=== PATIENT | male | born 1980 | race Caucasian/White ===

== ENCOUNTER → 2016-08-18 | Outpatient (CLI) | payer OTHER ==
[~2016-08-18] MED LIST: IBUP-103 PO; MULT-506 PO; SALI1SPR3
--- NOTE | 2016-08-18 16:08 | DIAGNOSTIC IMAGING REPORT ---
CHEST 2 VIEWS ROUTINE CLINICAL HISTORY: ACUTE SINUSITIS dyspnea COMPARISON STUDY: No previous studies for comparison. FINDINGS: The bones soft tissues and hemidiaphragms are normal. The cardiomediastinal silhouette is normal. The lungs are clear. The pulmonary vasculature is normal. IMPRESSION: Negative chest. Electronically signed by: Vinh Taylor M.D. 08/18/2016 4:07 PM Dictated Date/Time: 08/18/2016 4:07 PM
== END | disposition home or self-care (01) ==
LOC: C.RAD1850 15:52
PROVIDERS: ATTEND Family Medicine
DX: R50.9 Fever, unspecified (principal); J01.90 Acute sinusitis, unspecified

== ENCOUNTER 2016-08-19 10:18 | Emergency (ER) | payer OTHER ==
[~2016-08-19] VITALS: Ht 185.4 cm; Wt 102.3 kg
[~2016-08-19 10:18] MED LIST changes: -IBUP-103 PO; -SALI1SPR3
[2016-08-19 10:30] VITALS: TEMP 36.9; Ht 185.4 cm; Wt 102.3 kg
[2016-08-19] MEDS ORDERED: SALI1SPR3 (11:03)
[2016-08-19] MEDS ORDERED: IBUP-103 PO (11:04)
[2016-08-19] MEDS ORDERED: SODIUM CHLORIDE 0.9% 1000ML 1,000 ML IV STA (11:10)
[2016-08-19] MEDS ORDERED: KETOROLAC TROMETHAMINE 30 MG/ML VIAL IV STA (11:10)
[2016-08-19 11:32] LABS: BASO % 0.4 %; BASO ABS # 0.02 K/uL (0-0.2); COMPLETE YES; EOS % 0.2 %; HEMATOCRIT 43.3 % (42-52); IG% 0.2 %; LYMPH % 22.5 %; MEAN CELL VOLUME 84.9 fL (80-100); MEAN CORPUSCULAR HEMOGLOBIN 29.2 pg (25-34); MEAN CORPUSCULAR HGB CONC 34.4 g/dl (32-36); NEUT % 58.7 %; PLATELET COUNT 198 K/uL (130-400); WHITE BLOOD COUNT 5.33 K/uL (4.8-10.8)
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
[2016-08-19 11:50] LABS: ALT/SGPT 34 U/L (12-78); BLOOD UREA NITROGEN 13 mg/dl (7-18); BUN/CREATININE RATIO 10.5 (10-20); CALCIUM 8.3 mg/dl (8.5-10.1); CARBON DIOXIDE 26 mmol/L (21-32); CHLORIDE 108 mmol/L (98-107); GLUCOSE 89 mg/dl (70-99); POTASSIUM 3.6 mmol/L (3.5-5.1); SODIUM 141 mmol/L (136-145)
[2016-08-19 11:53] LABS: ALKALINE PHOSPHATASE 61 U/L (45-117); AST/SGOT 23 U/L (15-37); CKMB/CK RATIO 0.7 (0-3.0)
--- NOTE | 2016-08-19 12:03 | DIAGNOSTIC IMAGING REPORT ---
TWO VIEW CHEST CLINICAL HISTORY: Fever. Sepsis.. FINDINGS: PA and lateral chest radiographs are compared to study dated 08/18/2016. The cardiomediastinal silhouette is unremarkable. The lungs and pleural spaces are clear. There is no pneumothorax. The bony thorax appears intact. IMPRESSION: No active disease in the chest and no significant change from yesterday. Electronically signed by: Gt Gonzalez M.D. 08/19/2016 12:02 PM Dictated Date/Time: 08/19/2016 12:02 PM
--- NOTE | 2016-08-19 12:03 | DIAGNOSTIC IMAGING REPORT ---
SOFT TISSUE NECK TECHNIQUE: AP and lateral soft tissue neck FINDINGS: Normal prevertebral soft tissues. No distention of the hypopharynx. The epiglottis is normal. IMPRESSION: Normal study. Electronically signed by: Vinh Taylor M.D. 08/19/2016 12:02 PM Dictated Date/Time: 08/19/2016 12:02 PM
[2016-08-19 12:29] LABS: LYME DISEASE AB IGG NEG (NEG); LYME DISEASE AB IGM NEG (NEG)
[2016-08-19 13:07] LABS: URINE APPEARANCE CLEAR (CLEAR); URINE BILIRUBIN NEG (NEG); URINE COLOR DK YELLOW; URINE EPITHELIAL CELL AUTO >30 /lpf (0-5); URINE NITRITE NEG (NEG); URINE SPECIFIC GRAVITY 1.028 (1.000-1.030); UROBILINOGEN NEG (NEG)
[2016-08-19 13:10] LABS: MANUAL MICROSCOPIC REQUIRED? NO; REVIEW REQ? YES
[2016-08-19 14:21] VITALS: BP 131/88; PULSE 80; O2SAT 97
== END 2016-08-19 14:22 | disposition home or self-care (01) ==
LOC: C.EDB 10:20
DX: J02.9 Acute pharyngitis, unspecified (principal); K58.9 Irritable bowel syndrome, unspecified; Z88.8 Allergy status to other drugs, medicaments and biological substances

== ENCOUNTER → 2017-08-09 | Outpatient (CLI) | payer OTHER ==
[~2017-08-09] MED LIST changes: +IBUP-103 PO; +SALI1SPR3
--- NOTE | 2017-08-09 18:10 | DIAGNOSTIC IMAGING REPORT ---
ABDOMEN FOR HERNIA HISTORY: 36 years-old Male PERIUMBILICAL PAIN acute periumbilical abdominal pain COMPARISON: None available TECHNIQUE: Multiple real-time sonographic images of the periumbilical tissues were obtained assessing grayscale appearance and color flow FINDINGS: Within the area of concern within the left periumbilical tissues, there is no abdominal wall hernia, focal mass or other abnormality identified. Normal-appearing subcutaneous tissues are seen. IMPRESSION: No periumbilical hernia identified. The above report was generated using voice recognition software. It may contain grammatical, syntax or spelling errors. Electronically signed by: Jose Carlos Hutton M.D. 08/09/2017 6:09 PM Dictated Date/Time: 08/09/2017 6:08 PM
== END | disposition home or self-care (01) ==
LOC: C.ULTR 17:17
PROVIDERS: ATTEND Student in an Organized Health Care Education/Training Program
DX: R10.33 Periumbilical pain (principal)

== ENCOUNTER 2024-04-21 18:42 | Observation (INO) ==
--- NOTE | 2024-04-21 18:55 | Emergency Department Note ---
Impression & Plan Appendicitis, Abdominal pain, RLQ ED Provider Note NAME: UZMA ROCK AGE: 43 SEX: M : 1980 ARRIVES VIA: Walk-In INFORMANT: Patient, ED PROVIDER(S): Gray Perrin MD CHIEF COMPLAINT: Abdominal pain MEDICAL DECISION MAKING: Patient presents due to concern for abdominal pain. IV was established and blood work was obtained. CT abdomen pelvis performed. Patient declined any pain medication at this time. Blood work shows a normal white count H&H and platelet count. The patient's kidney function is unremarkable with normal LFTs and electrolytes. Urinalysis negative for blood or infection. CT abdomen pelvis does show concern for early mild acute appendicitis.patient was informed of the findings. I did speak the on-call general surgeon Dr. Gill. Mefoxin was ordered and the patient was subsequently taken to the OR for operative treatment. Discussion w/ other healthcare providers: Dr. Newton general surgery Prior /Outside records reviewed: I did review the patient's [facility] report from Dr. Hussein who referred him here for migratory right lower quadrant pain. Differential diagnosis: Appendicitis, testicular torsion, UTI, diverticulitis, obstruction, renal colic, mesenteric adenitis, enteririts, PUD, pancreatitis, biliary pathology, hernia, volvulus, constipation, as well as other pathologies were considered. Diagnostics, as interpreted by me: ECG: None Cardiac monitoring: An order was placed for continuous cardiac monitoring. The monitor shows a rate of 82 with sinus rhythm. Patient was placed on pulse oximetry Medical decision rules: None Imaging studies: I informally interpreted the patient's CT abdomen pelvis does not show evidence of obvious obstruction with formal report to follow. HPI: Patient presents due to concern for abdominal pain. The patient was referred from [facility]. The patient states that this morning he had some associated bilateral lower abdominal pain but now it seems to be more localized to the right lower abdomen. Patient denies any chest pains or shortness of breath no nausea or vomiting. The patient did take some Advil earlier today for headache and thinks that it might of improved his symptoms. The patient had also taken a Gas-X. Patient denies any dysuria or hematuria no hematochezia. Patient denies any prior abdominal surgeries although he did have a mole removed from his abdomen sometime ago. Patient has not had any intra-abdominal procedures performed. PAST MEDICAL HISTORY: No pertinent past medical history PAST SURGICAL HISTORY: No pertinent past surgical history SOCIAL HISTORY: See Below HOME MEDICATIONS: See Below ALLERGIES: See Below VITALS: See Below PHYSICAL EXAMINATION: GENERAL: NAD, non-toxic. EYE EXAM: Normal conjunctiva. PERRL, no anisocoria and EOM's grossly intact w/o pain. OROPHARYNX: Moist mucus membranes, grossly normal dentition. NECK: Trachea midline, no stridor. LUNGS: Clear to auscultation. Normal chest wall mechanics. HEART: NSR, no MRG. ABDOMEN: Abdomen soft, right lower quadrant pain, negative obturators and psoas, no masses, no rebound or guarding. BACK: No CVA TTP. SKIN: No rashes and no bruising. UPPER EXTREMITIES: Upper extremities are grossly normal. LOWER EXTREMITIES: Grossly normal, no edema. NEURO EXAM: A&O x3, cranial nerves II-XII grossly intact, normal speech, moves all 4 extremities. Past Med/Surg History Problem List (Updated 04/21/24 @ 21:55 by Gray Perrin MD) Abdominal pain, RLQ (Acute) Appendicitis (Acute) Irritable bowel syndrome (Chronic) Acute febrile illness (Acute) Pharyngitis (Acute) Social History Smoking Status: Never smoker Preferred Language: Korean Feels Safe at Home: Yes Allergies Allergies Allergy/AdvReac Type Severity Reaction Status Date / Time monosodium glutamate Allergy Mild HANDS SWELL Unverified 08/19/16 11:04 Home Meds Home Medications Medication Instructions Recorded Confirmed multivitamin 1 tab DAILY 04/21/24 04/21/24 Results & Data (ED) Vital Signs Vital Signs - 24 hr 04/21/24 18:53 04/21/24 19:34 04/21/24 19:35 Temperature 36.8 C Temperature Source Temporal Artery Scan Pulse Rate 84 83 Pulse Rate [Apical] 87 Respiratory Rate 19 14 Respiratory Effort / Characteristics Non-Labored Spontaneous Respiratory Depth Normal Respiratory Pattern Regular Blood Pressure 148/90 H Blood Pressure [Right Arm] 141/94 H Blood Pressure Mean 109 Blood Pressure Mean [Right Arm] 109 Blood Pressure Position [Right Arm] Semi-fowlers Pulse Oximetry 97 97 Oxygen Delivery Method Room Air Room Air Sepsis New/Unexplained Change in Mental Status N/A Sepsis Action Taken by Nursing No Action Required 04/21/24 20:58 04/21/24 21:19 Temperature 36.9 C Temperature Source Oral Pulse Rate Pulse Rate [Apical] 81 80 Respiratory Rate 15 22 Respiratory Effort / Characteristics Non-Labored Spontaneous Non-Labored Spontaneous Respiratory Depth Normal Normal Respiratory Pattern Regular Regular Blood Pressure Blood Pressure [Right Arm] 134/93 141/98 H Blood Pressure Mean Blood Pressure Mean [Right Arm] 106 112 Blood Pressure Position [Right Arm] Semi-fowlers Pulse Oximetry 99 99 Oxygen Delivery Method Room Air Room Air Sepsis New/Unexplained Change in Mental Status Sepsis Action Taken by Correction Medications Current Medication List: was personally reviewed by me Laboratory Data Attestation: I reviewed the patient's lab results. 04/21/24 19:05 04/21/24 19:05 Lab Results 04/21/24 04/21/24 Range/Units 19:05 19:10 WBC 7.02 (4.8-10.8) K/ul RBC 5.35 (4.70-6.10) M/uL Hgb 15.7 (14.0-18.0) g/dl Hct 46.9 (42.0-52.0) % MCV 87.7 (80.0-100.0) fL MCH 29.3 (25.0-34.0) pg MCHC 33.5 (32.0-36.0) g/dL RDW Std Deviation 40.3 (36.4-46.3) fL RDW Coeff of Sanya 12.6 (11.5-14.5) % Plt Count 248 (130-400) K/uL MPV 9.0 L (9.4-12.4) fL Immature Gran % (Auto) 0.3 % Neut % (Auto) 66.9 % Lymph % (Auto) 22.6 % [place] % (Auto) 9.0 % Eos % (Auto) 0.9 % Baso % (Auto) 0.3 % Neut # (Auto) 4.70 (1.40-6.50) K/uL Lymph # (Auto) 1.59 (1.20-3.40) K/uL [place] # (Auto) 0.63 H (0.11-0.59) K/uL Eos # (Auto) 0.06 (0.00-0.50) K/uL Baso # (Auto) 0.02 (0.00-0.20) K/uL Immature Gran # (Auto) 0.02 (0.01-0.20) K/uL Sodium 140 (136-145) mmol/L Potassium 3.8 (3.5-5.1) mmol/L Chloride 105 (98-107) mmol/L Carbon Dioxide 29 (21-32) mmol/L Anion Gap 6 (3-11) BUN 15 (6-23) mg/dl Creatinine 1.08 (0.6-1.4) mg/dl Est Cr Clr Drug Dosing 111.2 ml/min eGFR 87.32 BUN/Creatinine Ratio 13.9 (10-20) Glucose 91 (70-99(Fasting)) mg/dl Calcium 9.2 (8.6-10.3) mg/dl Total Bilirubin 0.8 (0.2-1.0) mg/dl AST 18 (13-39) U/L ALT 25 (7-52) U/L Alkaline Phosphatase 52 (34-104) U/L Total Protein 7.4 (6.0-8.3) gm/dl Albumin 4.8 (3.4-5.0) gm/dl Globulin 2.6 (2.5-4.0) gm/dl Albumin/Globulin Ratio 1.8 (0.9-2) Urine Color Yellow Urine Appearance Clear (Clear) Urine pH 5.5 (4.5-7.5) Ur Specific [place] 1.022 (1.000-1.030) Urine Protein Negative (Negative) Urine Glucose (UA) Negative (Negative) Urine Ketones Negative (Negative) Urine Blood Negative (Negative) Urine Nitrite Negative (Negative) Urine Bilirubin Negative (Negative) Urine Urobilinogen Negative (Negative) Ur Leukocyte Esterase Negative (Negative) Administered Medications Discontinued Medications Cefoxitin Sodium (Mefoxin) 2,000 mg in 60 mls @ 100 mls/hr IV NOW STA Stop: 04/21/24 21:14 Last Infusion: 04/21/24 21:27 Dose: Infused Documented By: Admin: 04/21/24 20:54 Dose: 100 mls/hr Documented By: MILIND Ioversol (Optiray 320 100ml) 93 ml IV ONCE ONE Stop: 04/21/24 19:26 Last Admin: 04/21/24 19:25 Dose: 93 ml Documented By: EDK Imaging Data Radiologist's Impression: Abdomen/Pelvis CT 04/21/24 19:06 Exam(s): CT ABDOMEN + PELVIS With Contrast IV Amt: OPTIRAY 320 93ML EXAM: CT Abdomen and Pelvis With Intravenous Contrast CLINICAL HISTORY: Reason for exam: RLQ pain. TECHNIQUE: Axial computed tomography images of the abdomen and pelvis with intravenous contrast. CTDI is 27 mGy and DLP is 1525 mGy-cm. Automated exposure control was utilized for the study. A dose lowering technique was utilized adhering to the principles of ALARA. CONTRAST: Patient received OPTIRAY 320 93ML of IV contrast COMPARISON: None. FINDINGS: Lung bases: Left basal minimal atelectatic changes. No mass. No consolidation. An elevated right hemidiaphragm. ABDOMEN: Liver: Mild/moderate diffuse fatty infiltration. No mass. Gallbladder and bile ducts: Unremarkable. No calcified stones. No ductal dilation. Pancreas: Rudimentary pancreatic tail. No contour deforming mass or surrounding inflammatory changes identified. No ductal dilatation.. Spleen: Unremarkable. No splenomegaly. Adrenals: Unremarkable. No mass. Kidneys and ureters: Unremarkable. Anteriorly a 1.6 cm left mid renal cortical cyst. Few tiny right renal cysts. No solid mass. No hydronephrosis. Stomach and bowel: A very small hiatal hernia. Normal-caliber small/large bowel loops. Moderate colonic stool volume. Descending colonic/sigmoid diverticulosis coli. Left lower quadrant pericolonic minimal reactive versus inflammatory fat stranding (series 3 image 245, series 300 image 36). No obstruction. No mucosal thickening. PELVIS: Appendix: There is a retrocecal maximum 9 mm diameter mildly distended appendix seen with somewhat thickened mahan and periappendiceal minimal inflammatory fat stranding (series 3 image 193, series 300 image 29), concerning for early/mild acute appendicitis in the appropriate clinical context Bladder: A partially decompressed bladder with wall thickening. No mass. Reproductive: Unremarkable as visualized. ABDOMEN and PELVIS: Intraperitoneal space: No free air. No significant fluid collection. Bones/joints: No acute fracture. No dislocation.T12 vertebral superior and inferior endplates focal defects/Schmorl's nodes.T8 vertebral superior endplate mild deformity. Soft tissues: Unremarkable. A small umbilical and bilateral small fat- containing inguinal hernias. Vasculature: Unremarkable. No abdominal aortic aneurysm. Lymph nodes: No enlarged lymph nodes.. IMPRESSION: A retrocecal maximum up to 9 mm diameter appendix is seen with mildly thickened mahan and periappendiceal minimal inflammatory fat stranding, concerning for an early/mild acute appendicitis in the appropriate clinical context. Distal colonic/sigmoid diverticulosis coli. And left lower abdominal quadrant pericolonic minimal reactive versus inflammatory fat stranding. Clinical correlation advised. . Electronically signed by: Chu Flores MD, VERAR 04/21/24 20:35 PM Discharge Plan Visit Data Chief Complaint: Abdominal Pain Stated Complaint: RT LOWER QUADRANT PAIN ED Provider: Gray Perrin Discharge Problem: Appendicitis, Abdominal pain, RLQ Patient Disposition: Admitted As Inpatient Discharge Instructions Interventions: ED Discharge Assessment Last Done: 04/21/24 21:34 Discharge Problem: Appendicitis Qualifiers: Appendicitis type: acute appendicitis Acute appendicitis type: with localized peritonitis Appendicitis gangrene presence: without gangrene Appendicitis perforation presence: without perforation Appendicitis abscess presence: without abscess Qualified Code(s): K35.30 - Acute appendicitis with localized peritonitis, without perforation or gangrene
[2024-04-21 19:23] LABS: Appearance Urine Clear (Clear); Bilirubin Urine Negative (Negative); Blood Urine Negative (Negative); Color Urine Yellow; Glucose Urine UA Negative (Negative); Ketones Urine Negative (Negative); Leukocyte Esterase Urine Negative (Negative); Nitrite Urine Negative (Negative); Protein Urine Negative (Negative); Specific Gravity Urine 1.022 (1.000-1.030); Urobilinogen Urine Negative (Negative); pH Urine 5.5 (4.5-7.5)
[2024-04-21 19:25] LABS: Basophils # (auto) 0.02 K/uL (0.00-0.20); Basophils % (auto) 0.3 %; Eosinophils # (auto) 0.06 K/uL (0.00-0.50); Eosinophils % (auto) 0.9 %; Hematocrit (blood only) 46.9 % (42.0-52.0); Hemoglobin 15.7 g/dl (14.0-18.0); Immature Granulocytes # (auto) 0.02 K/uL (0.01-0.20); Immature Granulocytes % (auto) 0.3 %; Lymphocytes # (auto) 1.59 K/uL (1.20-3.40); Lymphocytes % (auto) 22.6 %; Mean Corpuscular Hemoglobin 29.3 pg (25.0-34.0); Mean Corpuscular Hgb Conc 33.5 g/dL (32.0-36.0); Mean Corpuscular Volume 87.7 fL (80.0-100.0); Monocytes # (auto) 0.63 K/uL (0.11-0.59); Neutrophils % (auto) 66.9 %; Platelet Count 248 K/uL (130-400); RDW Coefficient of Variation 12.6 % (11.5-14.5); RDW Standard Deviation 40.3 fL (36.4-46.3); Red Blood Count 5.35 M/uL (4.70-6.10); White Blood Count 7.02 K/ul (4.8-10.8)
[2024-04-21] MEDS: OPTIRAY 320 100ml IV ONE (19:25)
[2024-04-21 19:41] LABS: Albumin Globulin Ratio 1.8 (0.9-2); Albumin Level 4.8 gm/dl (3.4-5.0); BUN Creatinine Ratio 13.9 (10-20); Bilirubin,Total 0.8 mg/dl (0.2-1.0); Calcium 9.2 mg/dl (8.6-10.3); Creatinine Clr Calc Pharmacy 111.2 ml/min; Globulin 2.6 gm/dl (2.5-4.0); Potassium 3.8 mmol/L (3.5-5.1); Total Protein 7.4 gm/dl (6.0-8.3)
--- NOTE | 2024-04-21 20:36 | CT Scan Report ---
Exam(s): CT ABDOMEN + PELVIS With Contrast IV Amt: OPTIRAY 320 93ML EXAM: CT Abdomen and Pelvis With Intravenous Contrast CLINICAL HISTORY: Reason for exam: RLQ pain. TECHNIQUE: Axial computed tomography images of the abdomen and pelvis with intravenous contrast. CTDI is 27 mGy and DLP is 1525 mGy-cm. Automated exposure control was utilized for the study. A dose lowering technique was utilized adhering to the principles of ALARA. CONTRAST: Patient received OPTIRAY 320 93ML of IV contrast COMPARISON: None. FINDINGS: Lung bases: Left basal minimal atelectatic changes. No mass. No consolidation. An elevated right hemidiaphragm. ABDOMEN: Liver: Mild/moderate diffuse fatty infiltration. No mass. Gallbladder and bile ducts: Unremarkable. No calcified stones. No ductal dilation. Pancreas: Rudimentary pancreatic tail. No contour deforming mass or surrounding inflammatory changes identified. No ductal dilatation.. Spleen: Unremarkable. No splenomegaly. Adrenals: Unremarkable. No mass. Kidneys and ureters: Unremarkable. Anteriorly a 1.6 cm left mid renal cortical cyst. Few tiny right renal cysts. No solid mass. No hydronephrosis. Stomach and bowel: A very small hiatal hernia. Normal-caliber small/large bowel loops. Moderate colonic stool volume. Descending colonic/sigmoid diverticulosis coli. Left lower quadrant pericolonic minimal reactive versus inflammatory fat stranding (series 3 image 245, series 300 image 36). No obstruction. No mucosal thickening. PELVIS: Appendix: There is a retrocecal maximum 9 mm diameter mildly distended appendix seen with somewhat thickened mahan and periappendiceal minimal inflammatory fat stranding (series 3 image 193, series 300 image 29), concerning for early/mild acute appendicitis in the appropriate clinical context Bladder: A partially decompressed bladder with wall thickening. No mass. Reproductive: Unremarkable as visualized. ABDOMEN and PELVIS: Intraperitoneal space: No free air. No significant fluid collection. Bones/joints: No acute fracture. No dislocation.T12 vertebral superior and inferior endplates focal defects/Schmorl's nodes.T8 vertebral superior endplate mild deformity. Soft tissues: Unremarkable. A small umbilical and bilateral small fat- containing inguinal hernias. Vasculature: Unremarkable. No abdominal aortic aneurysm. Lymph nodes: No enlarged lymph nodes.. IMPRESSION: A retrocecal maximum up to 9 mm diameter appendix is seen with mildly thickened mahan and periappendiceal minimal inflammatory fat stranding, concerning for an early/mild acute appendicitis in the appropriate clinical context. Distal colonic/sigmoid diverticulosis coli. And left lower abdominal quadrant pericolonic minimal reactive versus inflammatory fat stranding. Clinical correlation advised. . Electronically signed by: Chu Flores MD, VERAR 04/21/24 20:35 PM
[2024-04-21] MEDS: cefOXitin 2,000 MG/60 ML BAG IV STA (20:54)
--- NOTE | 2024-04-21 21:25 | History & Physical Report ---
Date of Service April 21, 2024 Assessment & Plan (1) Appendicitis: Plan: IV mefoxin IVF NPO to Or for lap apendectomy History of Present Illness Primary Care Provider: Nelia Bender MD This is a 43YO male who presented to the ED with abdominal pain. This first started diffusely then localized to the right lower quadrant. He had a CT scan which shows early appendicitis and likely retrocecal. Allergies Allergy/AdvReac Type Severity Reaction Status Date / Time monosodium glutamate Allergy Mild HANDS SWELL Unverified 08/19/16 11:04 Home Medications Medication Instructions Recorded Confirmed Type multivitamin 1 tab DAILY 04/21/24 04/21/24 History Past Med/Surg History Problem List (Updated 04/21/24 @ 21:26 by Jose Alfredo Gill MD) Appendicitis Irritable bowel syndrome (Chronic) Acute febrile illness (Acute) Pharyngitis (Acute) Social History Smoking Status: Never smoker Preferred Language: Indonesian Feels Safe at Home: Yes Review of Systems + anorexia; no fever, no chills and no weakness no problem reported no problem reported no cough and no dyspnea no chest pain + abdominal pain and + nausea; no vomiting and no change in bowel habits no dysuria no back pain no problem reported no localized weakness and no generalized weakness no behavioral changes no easy bleeding and no easy bruising Physical Exam Constitutional: WD/WN, vitals as above Eyes: PERRL, conjunctivae normal, anicteric sclerae ENMT: external ear and nose normal, oropharynx normal Neck: trachea midline Respiratory: normal respiratory effort, lungs clear to auscultation Cardiovascular: RRR, no murmur, no edema Gastrointestinal (Abdomen): Inspection/Auscultation: abdomen normal to inspection and normal bowel sounds; abdomen not distended Percussion/Palpation: + abdomen tender, + guarding and abdomen soft; abdomen not rigid Musculoskeletal: Head/Neck/Chest: normocephalic and head atraumatic Skin: no rashes, warm and dry ASA Classification ASA ASA2E Results & Data Vital Signs (Past 12 Hours) Vital Signs Temp Pulse Pulse Resp BP BP Pulse Ox 04/21/24 21:19 36.9 C 80 22 134/93 99 04/21/24 20:58 81 15 134/93 99 04/21/24 19:35 83 04/21/24 19:34 87 14 141/94 H 97 04/21/24 18:53 36.8 C 84 19 148/90 H 97 O2 Del Method 04/21/24 21:19 Room Air 04/21/24 20:58 Room Air 04/21/24 19:35 04/21/24 19:34 Room Air 04/21/24 18:53 Room Air Diagnostic Findings EXAM: CT Abdomen and Pelvis With Intravenous Contrast CLINICAL HISTORY: Reason for exam: RLQ pain. TECHNIQUE: Axial computed tomography images of the abdomen and pelvis with intravenous contrast. CTDI is 27 mGy and DLP is 1525 mGy-cm. Automated exposure control was utilized for the study. A dose lowering technique was utilized adhering to the principles of ALARA. CONTRAST: Patient received OPTIRAY 320 93ML of IV contrast COMPARISON: None. FINDINGS: Lung bases: Left basal minimal atelectatic changes. No mass. No consolidation. An elevated right hemidiaphragm. ABDOMEN: Liver: Mild/moderate diffuse fatty infiltration. No mass. Gallbladder and bile ducts: Unremarkable. No calcified stones. No ductal dilation. Pancreas: Rudimentary pancreatic tail. No contour deforming mass or surrounding inflammatory changes identified. No ductal dilatation.. Spleen: Unremarkable. No splenomegaly. Adrenals: Unremarkable. No mass. Kidneys and ureters: Unremarkable. Anteriorly a 1.6 cm left mid renal cortical cyst. Few tiny right renal cysts. No solid mass. No hydronephrosis. Stomach and bowel: A very small hiatal hernia. Normal-caliber small/large bowel loops. Moderate colonic stool volume. Descending colonic/sigmoid diverticulosis coli. Left lower quadrant pericolonic minimal reactive versus inflammatory fat stranding (series 3 image 245, series 300 image 36). No obstruction. No mucosal thickening. PELVIS: Appendix: There is a retrocecal maximum 9 mm diameter mildly distended appendix seen with somewhat thickened mahan and periappendiceal minimal inflammatory fat stranding (series 3 image 193, series 300 image 29), concerning for early/mild acute appendicitis in the appropriate clinical context Bladder: A partially decompressed bladder with wall thickening. No mass. Reproductive: Unremarkable as visualized. ABDOMEN and PELVIS: Intraperitoneal space: No free air. No significant fluid collection. Bones/joints: No acute fracture. No dislocation.T12 vertebral superior and inferior endplates focal defects/Schmorl's nodes.T8 vertebral superior endplate mild deformity. Soft tissues: Unremarkable. A small umbilical and bilateral small fat- containing inguinal hernias. Vasculature: Unremarkable. No abdominal aortic aneurysm. Lymph nodes: No enlarged lymph nodes.. IMPRESSION: A retrocecal maximum up to 9 mm diameter appendix is seen with mildly thickened mahan and periappendiceal minimal inflammatory fat stranding, concerning for an early/mild acute appendicitis in the appropriate clinical context. Distal colonic/sigmoid diverticulosis coli. And left lower abdominal quadrant pericolonic minimal reactive versus inflammatory fat stranding. Clinical correlation advised.
[2024-04-21] MEDS ORDERED: MIDAZOLAM HCL 1 MG/ML 2ML VIAL ONE (22:12)
[2024-04-21] MEDS ORDERED: ROCURONIUM BROMIDE 10 MG/ML 5 ML VIAL IV ONE (22:13)
[2024-04-21] MEDS ORDERED: PROPOFOL IV EMULSION 10 MG/ML 20 ML VIAL IV ONE (22:13)
[2024-04-21] MEDS ORDERED: DEXAMETHASONE SOD INJ 4 MG/ML VIAL ONE (22:13)
[2024-04-21] MEDS ORDERED: fentaNYL citrate PF 100 MCG/2 ML VIAL ONE ×2 (22:13→22:43)
[2024-04-21] MEDS ORDERED: LIDOCAINE 2% 2 ML VIAL/AMP(20MG/ML) INFIL ONE (22:14)
[2024-04-21] MEDS ORDERED: ONDANSETRON INJ 2 MG/ML 2 ML VIAL ONE (22:14)
--- NOTE | 2024-04-21 22:37 | Anesthesiology Consultation ---
Date of Service April 21, 2024 Assessment & Plan Chart Review Chart Review: Acceptable Risk for Surgery Consults Requested none History Surgery Operation Date: 04/21/24 22:30 Proposed Procedures p Laparoscopic Appendectomy - Jose Alfredo iGll MD Height/Weight Height: 6 ft 1 in Weight: 103 kg Allergies Allergy/AdvReac Type Severity Reaction Status Date / Time monosodium glutamate Allergy Mild HANDS SWELL Unverified 08/19/16 11:04 Medications Home Medications Medication Instructions Recorded Confirmed Last Taken multivitamin 1 tab DAILY 04/21/24 04/21/24 04/21/24 NPO Date Last Intake of Fluids: 04/21/24 Time Last Intake of Fluids: 15:00 Date Last Intake of Solids: 04/21/24 Time Last Intake of Solids: 13:30 Social History Smoking Status: Never smoker Physical Exam Vital Signs Last Vital Signs Temp 36.9 C 04/21/24 21:19 Pulse 80 04/21/24 21:19 Resp 22 04/21/24 21:19 BP 141/98 H 04/21/24 21:19 Pulse Ox 99 04/21/24 21:19 O2 Del Method Room Air 04/21/24 21:19 Testing Laboratory Results 04/21/24 19:05 04/21/24 19:05 Urine Color Yellow 04/21/24 19:10 Urine Appearance Clear (Clear) 04/21/24 19:10 Urine pH 5.5 (4.5-7.5) 04/21/24 19:10 Ur Specific [place] 1.022 (1.000-1.030) 04/21/24 19:10 Urine Protein Negative (Negative) 04/21/24 19:10 Urine Glucose (UA) Negative (Negative) 04/21/24 19:10 Urine Ketones Negative (Negative) 04/21/24 19:10 Urine Nitrite Negative (Negative) 04/21/24 19:10 Ur Leukocyte Esterase Negative (Negative) 04/21/24 19:10
[2024-04-21] MEDS ORDERED: HYDROmorphone INJ 2 MG/ML SYR/VIAL IV PRN (22:38)
[2024-04-21] MEDS ORDERED: PROMETHAZINE HCL 6.25 MG in SODIUM CHLORIDE 0.9% 50 ML IV PRN (22:38)
[2024-04-21] MEDS ORDERED: ATROPINE SULFATE 0.1 MG/ML 10ML SYR IV PRN (22:38)
[2024-04-21] MEDS ORDERED: ePHEDrine sulfate 50 MG/ML AMP IV PRN (22:38)
[2024-04-21] MEDS ORDERED: fentaNYL citrate PF 100 MCG/2 ML VIAL IV PRN (22:38)
[2024-04-21] MEDS ORDERED: SUGAMMADEX SODIUM 200 MG/2 ML VIAL IV ONE (22:51)
[2024-04-21] MEDS: BUPIVACAINE/EPINEPHRINE 0.5% MPF 1:200,000 30 ML VIAL ONE (22:56)
--- NOTE | 2024-04-21 23:11 | Operative Report ---
Post Operative Report Pre & Post Diagnosis Operation Date: 04/21/24 22:30 Acute appendicitis I identified the patient and participated in the time-out.: Yes Procedure Operation Date: 04/21/24 22:30 Laparoscopic appendectomy Surgeon Jose Alfredo Gill MD Avionics System Engineer None Estimated Blood Loss 12 Findings Consistent with Post-Op Diagnosis Specimens Appendix to pathology Drains None Anesthesia Type General Complications none Disposition Accompanied Patient To Recovery: No Disposition: Recovery Room Indications This is a 43-year-old male admitted with appendicitis by CT scan and exam. We talked in detail about the options and recommended a laparoscopic appendectomy. He understands all the risks and wishes to proceed. Description of Procedure The patient was taken to the OR and underwent excellent general anesthesia. Their abdomen was prepped and draped in normal sterile fashion. A transverse supraumbilical incision was made, towel clamps were used to create tension on the abdominal wall as a Veress needle was inserted gently into the peritoneal cavity. Good pneumoperitoneum was achieved to about 15 mmHg pressure. Once this was done, a visualized 11 port was placed in the supraumbilical position. A 12 mm left lower quadrant port , a 5mm suprapubic port , and a 5mm right upper quadrant port were all placed in normal fashion. Patient was then placed in head down and rolled to the left. A good diagnostic lap was performed. They had obvious acute appendicitis. The cecum was grasped with an atraumatic grasper. A grasper was then was then used to grasp the tip of the appendix. The mesoappendix was splayed open and a harmonic scalpel was used to take down the mesoappendix. The base of the appendix was identified and an Endo REBECA stapler was used to transect the appendix at its base. A endobag was then inserted through the left lower quadrant port and the appendix was placed into the bag, The bag was removed through the left lower quadrant port. The appendix was sent for pathologic evaluation. The pneumoperitoneum was re- established after the 12 mm port was replaced. Saline was then used to irrigate the abdomen. There was no active bleeding nor any other abnormalities noted in the abdomen. The patient was then placed back in neutral position, the ports were removed and the pneumoperitoneum decompressed. The 12mm port fascia was then closed using a 0 Vicryl. The skin was then anesthetized with 0.5% Marcaine with epinephrine local. Interrupted Vicryl is used to close the skin. Dermabond was used to reinforce the incisions. Sterile dressings were applied. The patient tolerated procedure without complications was sent to the postop recovery period of observation. They will be sent to the floor for the rest of their care. I attest to the content of the Intraoperative Record and any orders documented therein. Any exceptions are noted below.
[2024-04-21] MEDS ORDERED: oxyCODONE/ACETAMINOPHEN 5mg/325mg TAB PO PRN (23:54)
[2024-04-21] MEDS ORDERED: MoRPHine SULFATE 2 MG/ML CARP IV PRN (23:54)
[2024-04-21] MEDS ORDERED: MoRPHine SULFATE 4 MG/ML 1 ML CARP\\VIAL IV PRN (23:54)
[2024-04-22] MEDS: ONDANSETRON INJ 2 MG/ML 2 ML VIAL IV PRN ×2 (00:22→07:46)
[2024-04-22] MEDS: oxyCODONE/ACETAMINOPHEN 5mg/325mg TAB PO PRN (00:23)
[2024-04-22] MEDS: LACTATED RINGER'S 1,000 ML IV SCH (00:45)
--- NOTE | 2024-04-22 00:52 | Anesthesiology Progress Note ---
Date of Service April 22, 2024 Anesthesia Post Procedure Vital Signs Vital Signs: Temp Pulse Pulse Pulse Resp BP BP 04/22/24 00:45 36.4 C L 63 18 131/84 04/22/24 00:23 36.6 C 73 18 136/86 04/21/24 23:50 36.4 C L 73 18 142/89 H 04/21/24 23:50 36.4 C L 73 18 142/89 H 04/21/24 23:37 36.2 C L 81 18 162/96 H 04/21/24 23:27 36.0 C L 91 H 18 152/99 H 04/21/24 23:17 35.8 C L 101 H 18 140/109 H 04/21/24 21:19 36.9 C 80 22 141/98 H 04/21/24 20:58 81 15 134/93 04/21/24 19:35 83 04/21/24 19:34 87 14 141/94 H 04/21/24 18:53 36.8 C 84 19 148/90 H Pulse Ox O2 Del Method 04/22/24 00:45 94 Room Air 04/22/24 00:23 92 Room Air 04/21/24 23:50 95 Room Air 04/21/24 23:50 95 Room Air 04/21/24 23:37 95 Room Air 04/21/24 23:27 95 Room Air 04/21/24 23:17 97 Room Air 04/21/24 21:19 99 Room Air 04/21/24 20:58 99 Room Air 04/21/24 19:35 04/21/24 19:34 97 Room Air 04/21/24 18:53 97 Room Air Pain Intensity Bilateral Abdomen: Pain Intensity: 8 Transfer of Care Handoff Completed per policy Notes Mental Status: alert / awake / arousable and participated in evaluation Patient Amnestic to Procedure: Yes Nausea / Vomiting: adequately controlled Pain: adequately controlled Airway Patency, RR, SpO2: stable & adequate BP & HR: stable & adequate Hydration State: stable & adequate Anesthetic Complications: no major complications apparent
[2024-04-22] MEDS: cefOXitin 2,000 MG in DEXTROSE 5 % MINI-B 50 ML IV SCH (04:21)
[2024-04-22] MEDS: PROMETHAZINE 25 MG/51 ML BAG IV PRN (09:05)
[2024-04-22 15:45] VITALS: BP 144/70; PULSE 88; RESP 18; TEMP 97.9; O2SAT 98
--- NOTE | 2024-04-22 16:13 | Surgery Progress Note ---
Date of Service April 22, 2024 Assessment & Plan (1) Appendicitis: Plan: post operative lap appy doing well tolerating diet no n/v vss expected post operative discomfort dermabond CDI stable for d/c f/u o/p with operative surgeon in 1-2 weeks Admission and Anticipated Discharge Date Admission Date: April 21, 2024 Subjective denies n/v, f/c Review of Systems Constitutional: no fever and no chills Respiratory: no dyspnea Cardiovascular: no chest pain Gastrointestinal: no abdominal pain, no nausea and no vomiting Musculoskeletal: no muscle weakness Psychiatric: no confusion Physical Exam Constitutional: well developed, cooperative and comfortable; no acute distress Respiratory: normal respiratory effort; no respiratory distress Gastrointestinal (Abdomen): Inspection/Auscultation: + abdominal surgical incision (dermabond CDI ) Psychiatric: A+Ox3, euthymic affect Results & Data Vital Signs (Past 12 Hours) Vital Signs Temp Pulse Resp BP Pulse Ox O2 Del Method O2 Flow Rate 04/22/24 15:44 97.9 F 88 18 144/70 H 98 Nasal Cannula 5 04/22/24 14:24 97.7 F 80 16 124/80 94 Room Air 04/22/24 08:23 Room Air 04/22/24 07:11 97.7 F 72 16 126/82 96 Room Air PG Care Time/CCT Total # of Minutes Spent Total Time Spent with Patient: Total time spent is greater than 50% in coordination of care (as documented) at patient's floor/unit and/or counseling patient: Coding Level of Care Code 07822 Post Operative Follow-Up Diagnoses Appendicitis K35.30 Acute appendicitis type: with localized peritonitis Appendicitis abscess presence: without abscess Appendicitis gangrene presence: without gangrene Appendicitis perforation presence: without perforation Appendicitis type: acute appendicitis (1) Appendicitis Acute appendicitis type: with localized peritonitis Appendicitis abscess presence: without abscess Appendicitis gangrene presence: without gangrene Appendicitis perforation presence: without perforation Appendicitis type: acute appendicitis Qualified Code(s): K35.30 - Acute appendicitis with localized peritonitis, without perforation or gangrene
== END 2024-04-22 15:53 | disposition home or self-care (01) ==
LOC: ED 18:42 → 3E 21:35 → OR 21:35 → 3E 04-22 03:00
DX: Z87.19 Personal history of other diseases of the digestive system; K35.30 Acute appendicitis with localized peritonitis, without perforation or gangrene